=== PATIENT | female | born 1970 ===

== ENCOUNTER 2018-07-26 08:02 | Inpatient (IN) | payer MEDICAID ==
[~2018-07-26] VITALS: Ht 157.5 cm; Wt 95.1 kg
[2018-07-26 09:15] VITALS: BP 107/79
[2018-07-26] MEDS ORDERED: ZOLPIDEM TARTRATE 10 MG TABLET PO PRN (09:30)
[2018-07-26] MEDS ORDERED: HALOPERIDOL 5 MG TABLET PO PRN (09:30)
[2018-07-26] MEDS ORDERED: ALBUTEROL SULFATE HFA 90 MCG/PUFF 8 GM INHALER IH PRN (15:00)
[2018-07-26] MEDS ORDERED: CloNIDine HCL 0.1 MG TABLET PO PRN (15:00)
[2018-07-26] MEDS ORDERED: ONDANSETRON HCL 4 MG TABLET PO PRN (15:00)
[2018-07-26] MEDS ORDERED: GuaiFENesin/D-METHORPHAN [SUGAR-FREE] 200-20MG/10 ML SYRUP UDCUP PO PRN (15:00)
[2018-07-26] MEDS ORDERED: ACETAMINOPHEN 325 MG TABLET PO PRN (15:00)
[2018-07-26] MEDS ORDERED: LOPERAMIDE HCL 2 MG CAPSULE PO PRN (15:00)
[2018-07-26] MEDS ORDERED: IBUPROFEN 400 MG TABLET PO PRN (15:00)
[2018-07-26] MEDS ORDERED: DOCUSATE SODIUM 100 MG CAPSULE PO PRN (15:00)
[2018-07-26] MEDS ORDERED: NICOTINE 14 MG/24 HOUR PATCH TD PRN (15:00)
[2018-07-26] MEDS ORDERED: MAGNESIUM HYDROXIDE SUSPENSION 30 ML UDCUP PO PRN (15:00)
[2018-07-26] MEDS ORDERED: PETROLATUM,WHITE 28 GM JELLY TP PRN (15:00)
[2018-07-26] MEDS ORDERED: MAG HYDROX/AL HYDROX/SIMETH ES 30 ML SUSPENSION UDCUP PO PRN (15:00)
[2018-07-26 16:06] VITALS: BP 112/70
[2018-07-26] MEDS: LORazepam 2 MG TABLET PO PRN (17:36)
[2018-07-27 05:44] VITALS: BP 105/60
[2018-07-27 08:31] VITALS: BP 119/78
[2018-07-27 08:55] LABS: BASOPHILS % (AUTO) 0.3 % (0.0-2.0); EOSINOPHILS % (AUTO) 1.7 % (1.0-6.0); HEMATOCRIT 35.3 % (36-46); HEMOGLOBIN 11.8 g/dL (12.0-16.0); LYMPHOCYTES # (AUTO) 1.9 K/uL (1.0-4.8); MEAN CORPUSCULAR HEMOGLOBIN 31.5 pg (26.0-34.0); MEAN CORPUSCULAR HGB CONC 33.5 G/dL (31.0-37.0); MEAN CORPUSCULAR VOLUME 94 fL (80-100); MONOCYTES # (AUTO) 0.3 K/uL (0.1-1.0); NEUTROPHILS # (AUTO) 4.3 K/uL (1.8-7.7); PLATELET COUNT (AUTO) 241 K/uL (150-450); RED BLOOD CELL COUNT(AUTO) 3.74 MIL/uL (4.00-5.20); RED CELL DISTRIBUTION WIDTH 13.4 % (11.5-14.5)
[2018-07-27 09:31] LABS: AMPHET/METH SCREEN,URINE NEGATIVE (NEGATIVE); BARBITURATE SCREEN, URINE NEGATIVE (NEGATIVE); BENZODIAZEPINES SCREEN,URINE NEGATIVE (NEGATIVE); CANNABINOID SCREEN,URINE NEGATIVE (NEGATIVE); COCAINE SCREEN,URINE NEGATIVE (NEGATIVE); METHADONE SCREEN, URINE NEGATIVE (NEGATIVE); OPIATE SCREEN,URINE NEGATIVE (NEGATIVE)
[2018-07-27 09:39] LABS: APPEARANCE,URINE CLOUDY (CLEAR); BILIRUBIN,URINE NEGATIVE (NEGATIVE); GLUCOSE, URINE (UA) NEGATIVE (NEGATIVE); KETONES,URINE NEGATIVE (NEGATIVE); LEUKOCYTE ESTERASE ,URINE MODERATE (NEGATIVE); NITRATE,URINE POSITIVE (NEGATIVE); OCCULT BLOOD,URINE NEGATIVE (NEGATIVE); PH,URINE 6.5 (5.0-8.0); PHENCYCLIDINE SCREEN,URINE NEGATIVE (NEGATIVE); PROTEIN,URINE NEGATIVE (NEGATIVE); UROBILINOGEN,URINE 0.2 mg/dL (<=1.0)
[2018-07-27 09:43] LABS: HEMOGLOBIN A1C 5.5 % (4.5-6.2)
[2018-07-27 10:12] LABS: ALANINE AMINOTRANSFERASE 96 U/L (12-78); ALKALINE PHOSPHATASE 59 U/L (46-116); ANION GAP 9 mmol/L (8-16); ASPARTATE AMINOTRANSFERASE 39 U/L (15-37); BILIRUBIN,TOTAL 0.2 mg/dL (0.1-1.0); CALCIUM, TOTAL 8.6 mg/dL (8.8-10.5); CARBON DIOXIDE 23 mmol/L (22-29); CHLORIDE 108 mmol/L (98-107); CHOL/HDL RATIO 3.3 (3.9-5.7); CHOLESTEROL 138 mg/dL (131-200); CREATININE 0.67 mg/dL (0.60-1.30); GLOMERULAR FILTR. RATE CALC > 60 mL/min (>60); GLUCOSE,RANDOM 102 mg/dL (70-110); HCG,QUANTITATIVE < 1 mIU/mL (0-6); HDL CHOLESTEROL 42 mg/dL (40-60); LDL CHOL (CALC.) 83 mg/dL (0-130); POTASSIUM 4.1 mmol/L (3.5-5.1); SODIUM SERUM 140 mmol/L (136-145); THYROID STIMULATING HORMONE 1.64 uIU/mL (0.36-3.74); TOTAL PROTEIN, SERUM 6.1 g/dL (6.4-8.2); TRIGLYCERIDES 65 mg/dL (15-150)
[2018-07-27 10:12] LABS: BACTERIA,URINE Many /HPF (None Seen); CALCIUM OXALATE CRYSTALS,UR Moderate /LPF (None Seen); RBC,URINE 0-2 /HPF (0-2); SQUAMOUS EPITHELIAL CELL,UR Moderate /LPF (None Seen)
[2018-07-27 10:19] LABS: UREA NITROGEN, BLOOD 12 mg/dL (7-18)
[2018-07-27] MEDS ORDERED: ARIPiprazole 10 MG TABLET PO SCH (11:00)
[2018-07-27] MEDS: ESCITALOPRAM OXALATE 10 MG TABLET PO SCH (13:27)
[2018-07-27] MEDS: LORazepam 2 MG TABLET PO PRN (13:34)
[2018-07-27 16:00] VITALS: BP 116/60
[2018-07-27] MEDS: CIPROFLOXACIN HCL 500 MG TABLET PO SCH (17:20)
[2018-07-28 08:13] VITALS: BP 112/68
[2018-07-28] MEDS: ESCITALOPRAM OXALATE 10 MG TABLET PO SCH (10:25)
[2018-07-28] MEDS: CIPROFLOXACIN HCL 500 MG TABLET PO SCH ×2 (10:25→17:01)
[2018-07-28] MEDS: LORazepam 2 MG TABLET PO PRN ×2 (10:28→16:06)
[2018-07-28 16:00] VITALS: BP 133/60
[2018-07-29 00:32] VITALS: BP 135/75
[2018-07-29] MEDS: CIPROFLOXACIN HCL 500 MG TABLET PO SCH ×2 (08:21→16:14)
[2018-07-29] MEDS: ESCITALOPRAM OXALATE 10 MG TABLET PO SCH (08:22)
[2018-07-29] MEDS: LORazepam 2 MG TABLET PO PRN (08:23)
[2018-07-29 08:28] VITALS: BP 132/84
[2018-07-29 16:34] VITALS: BP 121/67
[2018-07-30 01:00] VITALS: BP 129/88
[2018-07-30] MEDS: LORazepam 2 MG TABLET PO PRN (07:21)
[2018-07-30] MEDS: ESCITALOPRAM OXALATE 10 MG TABLET PO SCH (08:21)
[2018-07-30] MEDS: CIPROFLOXACIN HCL 500 MG TABLET PO SCH (08:21)
[2018-07-30 09:17] VITALS: BP 123/74
[2018-07-30] MEDS ORDERED: ESCI10TA54 PO (10:09)
[2018-07-30] MEDS ORDERED: ESCI10TA PO (11:02)
[2018-07-30] MEDS ORDERED: CIPR-278 PO (11:18)
== END 2018-07-30 13:00 | disposition home or self-care (01) | DRG 750 ==
LOC: B3A 09:36
DX: F25.0 Schizoaffective disorder, bipolar type (principal); F79 Unspecified intellectual disabilities; F41.9 Anxiety disorder, unspecified; G43.909 Migraine, unspecified, not intractable, without status migrainosus; G44.209 Tension-type headache, unspecified, not intractable; G47.00 Insomnia, unspecified; K59.00 Constipation, unspecified; Z59.0 Homelessness; Z79.899 Other long term (current) drug therapy; R00.0 Tachycardia, unspecified; Z88.5 Allergy status to narcotic agent; Z88.8 Allergy status to other drugs, medicaments and biological substances
CPT/HCPCS: 80307; 83036; 84443; 86592; 87086

== ENCOUNTER 2019-03-26 11:17 | Inpatient (IN) | payer MEDICAID, OTHER ==
[~2019-03-26] VITALS: Ht 157.5 cm; Wt 84.7 kg
[~2019-03-26 11:17] MED LIST: CIPR-278 PO; ESCI10TA PO; ESCI10TA54 PO
[2019-03-26 12:18] LABS: AMPHET/METH SCREEN,URINE NEGATIVE (NEGATIVE); BARBITURATE SCREEN, URINE NEGATIVE (NEGATIVE); BENZODIAZEPINES SCREEN,URINE NEGATIVE (NEGATIVE); CANNABINOID SCREEN,URINE NEGATIVE (NEGATIVE); COCAINE SCREEN,URINE NEGATIVE (NEGATIVE); METHADONE SCREEN, URINE NEGATIVE (NEGATIVE); OPIATE SCREEN,URINE NEGATIVE (NEGATIVE)
[2019-03-26 12:19] LABS: PHENCYCLIDINE SCREEN,URINE NEGATIVE (NEGATIVE)
[2019-03-26] MEDS ORDERED: LORazepam 2 MG/ML VIAL IM ONE (12:30)
[2019-03-26] MEDS ORDERED: DiphenhydrAMINE HCL 50 MG/ML VIAL IM ONE (12:30)
[2019-03-26] MEDS ORDERED: HALOPERIDOL LACTATE 5 MG/ML VIAL IM ONE (12:30)
[2019-03-26 14:33] LABS: BASOPHILS % (AUTO) 0.4 % (0.0-2.0); EOSINOPHILS % (AUTO) 0.3 % (1.0-6.0); HEMOGLOBIN 13.8 g/dL (12.0-16.0); LYMPHOCYTES # (AUTO) 2.4 K/uL (1.0-4.8); LYMPHOCYTES % (AUTO) 22.8 % (22.0-44.0); MEAN CORPUSCULAR HGB CONC 35.4 G/dL (31.0-37.0); MEAN CORPUSCULAR VOLUME 91 fL (80-100); MONOCYTES # (AUTO) 0.6 K/uL (0.1-1.0); MONOCYTES % (AUTO) 5.8 % (2.0-9.0); NEUTROPHILS # (AUTO) 7.6 K/uL (1.8-7.7); NEUTROPHILS % (AUTO) 70.7 % (40.0-70.0); PLATELET COUNT (AUTO) 266 K/uL (150-450); RED CELL DISTRIBUTION WIDTH 13.4 % (11.5-14.5)
[2019-03-26 14:44] LABS: ANION GAP 11 mmol/L (8-16); CALCIUM, TOTAL 8.8 mg/dL (8.8-10.5); CARBON DIOXIDE 24 mmol/L (22-29); CHLORIDE 106 mmol/L (98-107); CREATININE 0.82 mg/dL (0.60-1.30); GLOMERULAR FILTR. RATE CALC > 60 mL/min (>60); GLUCOSE,RANDOM 79 mg/dL (70-110); POTASSIUM 3.6 mmol/L (3.5-5.1); SODIUM SERUM 141 mmol/L (136-145); UREA NITROGEN, BLOOD 14 mg/dL (7-18)
[2019-03-26 14:50] LABS: ALANINE AMINOTRANSFERASE 34 U/L (12-78); ALBUMIN 3.6 g/dL (3.4-5.0); ALKALINE PHOSPHATASE 77 U/L (46-116); ASPARTATE AMINOTRANSFERASE 29 U/L (15-37); BILIRUBIN,TOTAL 0.4 mg/dL (0.1-1.0); TOTAL PROTEIN, SERUM 7.2 g/dL (6.4-8.2)
[2019-03-26] MEDS ORDERED: HALOPERIDOL 5 MG TABLET PO PRN (15:45)
[2019-03-26] MEDS ORDERED: ZOLPIDEM TARTRATE 10 MG TABLET PO PRN (15:45)
[2019-03-26] MEDS ORDERED: LORazepam 2 MG TABLET PO PRN (15:45)
[2019-03-27] MEDS ORDERED: INFLUENZA VIRUS VACCINE QVS 2019-20 (3YR+)/PF 60 MCG/0.5 ML SYRINGE IM ONE (04:00)
[2019-03-27 08:40] VITALS: BP 137/104
[2019-03-27] MEDS ORDERED: ESCITALOPRAM OXALATE 10 MG TABLET PO SCH (12:30)
[2019-03-27] MEDS: ESCITALOPRAM OXALATE 10 MG TABLET PO SCH (13:06)
[2019-03-27] MEDS ORDERED: PETROLATUM,WHITE 28 GM JELLY TP PRN (14:30)
[2019-03-27] MEDS ORDERED: DOCUSATE SODIUM 100 MG CAPSULE PO PRN (14:30)
[2019-03-27] MEDS ORDERED: CloNIDine HCL 0.1 MG TABLET PO PRN (14:30)
[2019-03-27] MEDS ORDERED: MAG HYDROX/AL HYDROX/SIMETH ES 30 ML SUSPENSION UDCUP PO PRN (14:30)
[2019-03-27] MEDS ORDERED: LOPERAMIDE HCL 2 MG CAPSULE PO PRN (14:30)
[2019-03-27] MEDS ORDERED: GuaiFENesin/D-METHORPHAN [SUGAR-FREE] 200-20MG/10 ML SYRUP UDCUP PO PRN (14:30)
[2019-03-27] MEDS ORDERED: ALBUTEROL SULFATE HFA 90 MCG/PUFF 8 GM INHALER IH PRN (14:30)
[2019-03-27] MEDS ORDERED: ONDANSETRON HCL 4 MG TABLET PO PRN (14:30)
[2019-03-27] MEDS ORDERED: MAGNESIUM HYDROXIDE SUSPENSION 30 ML UDCUP PO PRN (14:30)
[2019-03-27] MEDS ORDERED: NICOTINE 14 MG/24 HOUR PATCH TD PRN (14:30)
[2019-03-27] MEDS ORDERED: ACETAMINOPHEN 325 MG TABLET PO PRN (14:30)
[2019-03-27 16:18] VITALS: BP 105/61
[2019-03-28 02:03] VITALS: BP 134/73
[2019-03-28 08:24] VITALS: BP 116/79
[2019-03-28] MEDS: ESCITALOPRAM OXALATE 10 MG TABLET PO SCH (09:22)
[2019-03-28 16:17] VITALS: BP 120/73
[2019-03-29 08:21] VITALS: BP 130/73
[2019-03-29] MEDS: ESCITALOPRAM OXALATE 10 MG TABLET PO SCH (08:29)
[2019-03-29] MEDS: ARIPiprazole 10 MG TABLET PO SCH (13:47)
[2019-03-29 19:24] VITALS: BP 135/88
[2019-03-30] MEDS: ARIPiprazole 10 MG TABLET PO SCH (09:00)
[2019-03-30] MEDS: ESCITALOPRAM OXALATE 10 MG TABLET PO SCH (09:00)
[2019-03-30 10:50] VITALS: BP 121/96
[2019-03-30 10:51] VITALS: BP 121/96
[2019-03-30 16:30] VITALS: BP 125/74
[2019-03-31 05:38] VITALS: BP 141/79
[2019-03-31 08:00] VITALS: BP 121/75
[2019-03-31] MEDS: ARIPiprazole 10 MG TABLET PO SCH (09:20)
[2019-03-31] MEDS: ESCITALOPRAM OXALATE 10 MG TABLET PO SCH (09:20)
[2019-03-31] MEDS ORDERED: ARIP10TA8 PO (09:51)
[2019-03-31] MEDS ORDERED: ESCI10TA54 PO (09:51)
[2019-03-31 15:30] VITALS: BP 145/94
== END 2019-03-31 16:00 | disposition home or self-care (01) | DRG 885 ==
LOC: EMS 11:18 → 3EC 17:36
DX: F25.0 Schizoaffective disorder, bipolar type (principal); F79 Unspecified intellectual disabilities; Z87.891 Personal history of nicotine dependence; R00.0 Tachycardia, unspecified
CPT/HCPCS: 96372; 99291; G0480; J1200; J1630; J2060; Q0162

== ENCOUNTER 2019-12-19 09:10 | Inpatient (IN) | payer MEDICAID, OTHER ==
[~2019-12-19] VITALS: Ht 157.5 cm; Wt 80.0 kg
[~2019-12-19 09:10] MED LIST changes: +ARIP10TA8 PO; -CIPR-278 PO; -ESCI10TA PO; -ESCI10TA54 PO; +ESCI10TA61 PO
[2019-12-19 09:53] LABS: BASOPHILS % (AUTO) 0.6 % (0.0-2.0); EOSINOPHILS % (AUTO) 3.2 % (1.0-6.0); HEMATOCRIT 33.9 % (36-46); HEMOGLOBIN 11.6 g/dL (12.0-16.0); LYMPHOCYTES # (AUTO) 2.3 K/uL (1.0-4.8); LYMPHOCYTES % (AUTO) 39.7 % (22.0-44.0); MEAN CORPUSCULAR HEMOGLOBIN 31.9 pg (26.0-34.0); MEAN CORPUSCULAR HGB CONC 34.2 G/dL (31.0-37.0); MEAN CORPUSCULAR VOLUME 93 fL (80-100); MONOCYTES # (AUTO) 0.4 K/uL (0.1-1.0); MONOCYTES % (AUTO) 7.5 % (2.0-9.0); NEUTROPHILS # (AUTO) 2.8 K/uL (1.8-7.7); PLATELET COUNT (AUTO) 248 K/uL (150-450); RED BLOOD CELL COUNT(AUTO) 3.64 MIL/uL (4.00-5.20); RED CELL DISTRIBUTION WIDTH 13.4 % (11.5-14.5)
[2019-12-19 10:04] LABS: ANION GAP 6 mmol/L (8-16); CALCIUM, TOTAL 7.8 mg/dL (8.8-10.5); CARBON DIOXIDE 25 mmol/L (22-29); CHLORIDE 108 mmol/L (98-107); CREATININE 0.56 mg/dL (0.60-1.30); GLOMERULAR FILTR. RATE CALC > 60 mL/min (>60); GLUCOSE,RANDOM 99 mg/dL (70-110); POTASSIUM 3.7 mmol/L (3.5-5.1); SODIUM SERUM 139 mmol/L (136-145); UREA NITROGEN, BLOOD 7 mg/dL (7-18)
[2019-12-19 10:10] LABS: ALANINE AMINOTRANSFERASE 63 U/L (12-78); ALBUMIN 3.1 g/dL (3.4-5.0); ALKALINE PHOSPHATASE 60 U/L (46-116); ASPARTATE AMINOTRANSFERASE 45 U/L (15-37); BILIRUBIN,TOTAL 0.3 mg/dL (0.1-1.0); TOTAL PROTEIN, SERUM 6.5 g/dL (6.4-8.2)
[2019-12-19] MEDS ORDERED: LORazepam 2 MG/ML VIAL IM ONE (11:30)
[2019-12-19] MEDS ORDERED: DiphenhydrAMINE HCL 50 MG/ML VIAL IM ONE (11:30)
[2019-12-19] MEDS ORDERED: HALOPERIDOL LACTATE 5 MG/ML VIAL IM ONE (11:30)
[2019-12-19 12:10] LABS: AMPHET/METH SCREEN,URINE NEGATIVE (NEGATIVE); BARBITURATE SCREEN, URINE NEGATIVE (NEGATIVE); BENZODIAZEPINES SCREEN,URINE NEGATIVE (NEGATIVE); CANNABINOID SCREEN,URINE POSITIVE (NEGATIVE); COCAINE SCREEN,URINE NEGATIVE (NEGATIVE); METHADONE SCREEN, URINE NEGATIVE (NEGATIVE); OPIATE SCREEN,URINE NEGATIVE (NEGATIVE); PHENCYCLIDINE SCREEN,URINE NEGATIVE (NEGATIVE)
[2019-12-19] MEDS ORDERED: ZOLPIDEM TARTRATE 10 MG TABLET PO PRN (12:15)
[2019-12-19] MEDS ORDERED: HALOPERIDOL 5 MG TABLET PO PRN (12:15)
[2019-12-19 18:10] VITALS: BP 102/65
[2019-12-20] MEDS ORDERED: MAGNESIUM HYDROXIDE SUSPENSION 30 ML UDCUP PO PRN (08:15)
[2019-12-20] MEDS ORDERED: ONDANSETRON HCL 4 MG TABLET PO PRN (08:15)
[2019-12-20] MEDS ORDERED: MAG HYDROX/AL HYDROX/SIMETH ES 30 ML SUSPENSION UDCUP PO PRN (08:15)
[2019-12-20] MEDS ORDERED: GuaiFENesin/D-METHORPHAN [SUGAR-FREE] 200-20MG/10 ML SYRUP UDCUP PO PRN (08:15)
[2019-12-20] MEDS ORDERED: ALBUTEROL SULFATE HFA 90 MCG/PUFF 8 GM INHALER IH PRN (08:15)
[2019-12-20] MEDS ORDERED: PETROLATUM,WHITE 28 GM JELLY TP PRN (08:15)
[2019-12-20] MEDS ORDERED: NICOTINE 14 MG/24 HOUR PATCH TD PRN (08:15)
[2019-12-20] MEDS ORDERED: ACETAMINOPHEN 325 MG TABLET PO PRN (08:15)
[2019-12-20] MEDS ORDERED: CloNIDine HCL 0.1 MG TABLET PO PRN (08:15)
[2019-12-20] MEDS ORDERED: LOPERAMIDE HCL 2 MG CAPSULE PO PRN (08:15)
[2019-12-20 08:24] LABS: APPEARANCE,URINE CLEAR (CLEAR); BILIRUBIN,URINE NEGATIVE (NEGATIVE); GLUCOSE, URINE (UA) NEGATIVE (NEGATIVE); KETONES,URINE TRACE mg/dL (NEGATIVE); LEUKOCYTE ESTERASE ,URINE NEGATIVE (NEGATIVE); NITRATE,URINE NEGATIVE (NEGATIVE); OCCULT BLOOD,URINE NEGATIVE (NEGATIVE); PH,URINE 6.5 (5.0-8.0); PROTEIN,URINE NEGATIVE (NEGATIVE)
[2019-12-20 08:28] LABS: BACTERIA,URINE None Seen /HPF (None Seen); RBC,URINE None Seen /HPF (0-2); WBC,URINE None Seen /HPF (0-5)
[2019-12-20] MEDS: ARIPiprazole 10 MG TABLET PO SCH (08:40)
[2019-12-20] MEDS: ESCITALOPRAM OXALATE 10 MG TABLET PO SCH (08:41)
[2019-12-20 09:16] VITALS: BP 119/73
[2019-12-20] MEDS: NICOTINE 7 MG/24 HOUR PATCH TD SCH (12:11)
[2019-12-21] MEDS: DOCUSATE SODIUM 100 MG CAPSULE PO PRN (06:54)
[2019-12-21] MEDS: NICOTINE 7 MG/24 HOUR PATCH TD SCH (08:48)
[2019-12-21] MEDS: ESCITALOPRAM OXALATE 10 MG TABLET PO SCH (08:48)
[2019-12-21] MEDS: ARIPiprazole 10 MG TABLET PO SCH (08:48)
[2019-12-21 09:32] VITALS: BP 131/73
[2019-12-21 16:35] VITALS: BP 134/83
[2019-12-22] MEDS: ESCITALOPRAM OXALATE 10 MG TABLET PO SCH (09:04)
[2019-12-22] MEDS: ARIPiprazole 10 MG TABLET PO SCH (09:04)
[2019-12-22] MEDS: NICOTINE 7 MG/24 HOUR PATCH TD SCH (09:07)
[2019-12-22 10:36] VITALS: BP 125/78
[2019-12-22 16:29] VITALS: BP 136/81
[2019-12-22] MEDS: LORazepam 2 MG TABLET PO PRN (16:46)
[2019-12-23] MEDS: DOCUSATE SODIUM 100 MG CAPSULE PO PRN (07:58)
[2019-12-23] MEDS: ESCITALOPRAM OXALATE 10 MG TABLET PO SCH (08:06)
[2019-12-23] MEDS: NICOTINE 7 MG/24 HOUR PATCH TD SCH (08:06)
[2019-12-23] MEDS: ARIPiprazole 10 MG TABLET PO SCH (08:06)
[2019-12-23 08:58] VITALS: BP 131/85
[2019-12-23 16:51] VITALS: BP 101/60
[2019-12-23 20:38] VITALS: BP 115/72
[2019-12-23] MEDS: LORazepam 2 MG TABLET PO PRN (20:40)
[2019-12-24] MEDS: NICOTINE 7 MG/24 HOUR PATCH TD SCH (08:32)
[2019-12-24] MEDS: ARIPiprazole 10 MG TABLET PO SCH (08:32)
[2019-12-24] MEDS: ESCITALOPRAM OXALATE 10 MG TABLET PO SCH (08:32)
[2019-12-24 09:00] VITALS: BP 116/66
[2019-12-24 17:02] VITALS: BP 118/69
[2019-12-25] MEDS: ARIPiprazole 10 MG TABLET PO SCH (08:22)
[2019-12-25] MEDS: ESCITALOPRAM OXALATE 10 MG TABLET PO SCH (08:23)
[2019-12-25] MEDS: NICOTINE 7 MG/24 HOUR PATCH TD SCH (08:23)
[2019-12-25] MEDS: DOCUSATE SODIUM 100 MG CAPSULE PO PRN (08:27)
[2019-12-25 08:33] VITALS: BP 136/72
[2019-12-25] MEDS ORDERED: ARIP10TA8 PO (09:21)
[2019-12-25] MEDS ORDERED: ESCI-8 PO (09:21)
[2019-12-25] MEDS: LORazepam 2 MG TABLET PO PRN (09:33)
== END 2019-12-25 17:43 | disposition home or self-care (01) | DRG 750 ==
LOC: EMS 09:11 → 3EC 12:11
DX: F25.0 Schizoaffective disorder, bipolar type (principal); F10.10 Alcohol abuse, uncomplicated; D64.9 Anemia, unspecified; F12.10 Cannabis abuse, uncomplicated; Z79.899 Other long term (current) drug therapy; R45.87 Impulsiveness; R74.0 Nonspecific elevation of levels of transaminase and lactic acid dehydrogenase [LDH]
CPT/HCPCS: 99291; G0480; J1200; J1630; J2060